=== PATIENT | female | born 2000 | race African-American/Black ===

== ENCOUNTER 2024-01-14 12:30 | Outpatient (CLI) | payer OTHER | END 2024-01-14 12:45 | disposition home or self-care (01) | LOC: LAB.N 12:30 | PROVIDERS: ATTEND Physician Assistant Medical | DX: Z11.1 Encounter for screening for respiratory tuberculosis (principal) | CPT/HCPCS: 81599 ==

== ENCOUNTER 2024-02-04 18:56 | Outpatient (CLI) | payer OTHER | END 2024-02-04 23:59 | disposition EMS.NT | LOC: EMS 18:56 | DX: S69.90XA Unspecified injury of unspecified wrist, hand and finger(s), initial encounter (principal); X58.XXXA Exposure to other specified factors, initial encounter ==

== ENCOUNTER 2024-05-12 08:00 | Outpatient (CLI) | payer OTHER ==
[2024-05-12 23:30] LABS: CHLAMYDIA TRACHOMATIS DNA NEGATIVE (NEGATIVE); NEISSERIA GONORRHOEAE DNA NEGATIVE (NEGATIVE)
[2024-05-13 00:30] LABS: BACTERIAL VAGINOSIS DNA POSITIVE (NEGATIVE); CANDIDA GLABRATA DNA NEGATIVE (NEGATIVE); CANDIDA GROUP DNA NEGATIVE (NEGATIVE); CANDIDA KRUSEI DNA NEGATIVE (NEGATIVE); TRICHOMONAS VAGINALIS DNA NEGATIVE (NEGATIVE)
[2024-05-14 06:15] LABS: RPR Non Reactive (Non Reactive)
[2024-05-14 07:13] LABS: HIV SCREEN 4TH GENERATION Non Reactive (Non Reactive)
[2024-05-16 03:07] LABS: HCV AB Non Reactive (Non Reactive)
== END 2024-05-12 23:59 | disposition home or self-care (01) ==
LOC: LAB.N 08:00
PROVIDERS: ATTEND Physician Assistant
DX: Z11.3 Encounter for screening for infections with a predominantly sexual mode of transmission (principal)
CPT/HCPCS: 36415; 81514; 86592; 86695; 86696; 86803; 87389; 87491; 87591; 87661

== ENCOUNTER 2024-07-28 08:00 | Outpatient (CLI) | payer OTHER ==
[2024-07-28 23:07] LABS: BACTERIAL VAGINOSIS DNA NEGATIVE (NEGATIVE); CANDIDA GLABRATA DNA NEGATIVE (NEGATIVE); CANDIDA GROUP DNA NEGATIVE (NEGATIVE); CANDIDA KRUSEI DNA NEGATIVE (NEGATIVE); TRICHOMONAS VAGINALIS DNA NEGATIVE (NEGATIVE)
== END 2024-07-28 23:56 | disposition home or self-care (01) ==
LOC: LAB.N 08:00
PROVIDERS: ATTEND Nurse Practitioner Psychiatric/Mental Health
DX: R30.0 Dysuria (principal)
CPT/HCPCS: 81514; 87086